=== PATIENT | female | born 1970 | race African-American/Black ===

== ENCOUNTER 2017-03-02 00:31 | Emergency (ER) | payer MEDICARE, OTHER | END 2017-03-02 07:38 | disposition left against medical advice (07) | LOC: ER 00:31 | DX: Z53.21 Procedure and treatment not carried out due to patient leaving prior to being seen by health care provider (principal) ==

== ENCOUNTER 2017-03-25 00:21 | Emergency (ER) | payer MEDICARE, OTHER | END 2017-03-25 03:32 | disposition left against medical advice (07) | LOC: ER 00:21 | DX: Z53.21 Procedure and treatment not carried out due to patient leaving prior to being seen by health care provider (principal) ==

== ENCOUNTER 2019-04-20 09:42 | Emergency (ER) | payer MEDICARE, OTHER ==
[~2019-04-20] VITALS: Ht 170.2 cm; Wt 80.0 kg
[2019-04-20 11:13] VITALS: BP 118/74
== END 2019-04-20 11:21 | disposition left against medical advice (07) ==
LOC: ER 10:05
DX: N39.0 Urinary tract infection, site not specified (principal); E86.0 Dehydration; R10.2 Pelvic and perineal pain; R60.0 Localized edema; K21.9 Gastro-esophageal reflux disease without esophagitis; R00.0 Tachycardia, unspecified; Z88.0 Allergy status to penicillin
CPT/HCPCS: 71045; 81025; 93005; 99283

== ENCOUNTER 2019-05-02 22:56 | Emergency (ER) | payer MEDICARE, OTHER ==
[~2019-05-02] VITALS: Ht 165.1 cm; Wt 79.0 kg
[2019-05-02 23:09] VITALS: BP 110/65
== END 2019-05-03 03:29 | disposition left against medical advice (07) ==
LOC: ER 23:20
DX: R68.89 Other general symptoms and signs (principal); Z53.21 Procedure and treatment not carried out due to patient leaving prior to being seen by health care provider

== ENCOUNTER 2020-09-19 22:10 | Emergency (ER) | payer MEDICARE, OTHER ==
[~2020-09-19] VITALS: Ht 170.2 cm; Wt 56.0 kg
[2020-09-19 22:12] VITALS: BP 120/70
== END 2020-09-20 00:39 | disposition left against medical advice (07) ==
LOC: ER 22:10
DX: M79.671 Pain in right foot (principal); Z53.21 Procedure and treatment not carried out due to patient leaving prior to being seen by health care provider

== ENCOUNTER 2020-09-26 10:25 | Emergency (ER) | payer MEDICARE, MEDICAID ==
[~2020-09-26] VITALS: Ht 172.7 cm; Wt 82.0 kg
[2020-09-26 10:29] VITALS: BP 136/76
== END 2020-09-26 11:24 | disposition left against medical advice (07) ==
LOC: ER 10:43
DX: Z53.21 Procedure and treatment not carried out due to patient leaving prior to being seen by health care provider (principal); Z88.0 Allergy status to penicillin; Z88.1 Allergy status to other antibiotic agents

== ENCOUNTER 2020-11-01 10:29 | Emergency (ER) | payer MEDICARE, MEDICAID ==
[~2020-11-01] VITALS: Ht 177.8 cm; Wt 77.0 kg
[2020-11-01 10:37] VITALS: BP 119/66
== END 2020-11-01 11:38 | disposition left against medical advice (07) ==
LOC: ER 10:29
DX: F45.8 Other somatoform disorders (principal); Z88.0 Allergy status to penicillin
CPT/HCPCS: 99281

== ENCOUNTER 2020-11-06 19:33 | Emergency (ER) | payer MEDICARE, MEDICAID ==
[~2020-11-06] VITALS: Ht 172.7 cm; Wt 76.0 kg
[2020-11-06] MEDS ORDERED: ACETAMINOPHEN 325MG TABLET PO ONE (23:00)
[2020-11-06] MEDS ORDERED: ACET-2708 MT ×2 (23:40)
[2020-11-06] MEDS ORDERED: TOPUD MT (23:40)
[2020-11-06 23:55] VITALS: BP 129/81
== END 2020-11-06 23:55 | disposition home or self-care (01) ==
LOC: ER 19:33
DX: M79.672 Pain in left foot (principal); M79.671 Pain in right foot; Z88.0 Allergy status to penicillin
CPT/HCPCS: 99282

== ENCOUNTER 2020-11-07 19:51 | Emergency (ER) | payer MEDICARE, MEDICAID ==
[~2020-11-07 19:51] MED LIST: TOPUD MT
== END 2020-11-07 22:04 | disposition left against medical advice (07) ==
LOC: ER 19:51
DX: Z53.21 Procedure and treatment not carried out due to patient leaving prior to being seen by health care provider (principal)